=== PATIENT | female | born 1975 | race Caucasian/White ===

== ENCOUNTER 2017-11-29 11:43 | Emergency (ER) | payer MEDICARE, MEDICAID ==
[~2017-11-29] VITALS: Ht 165.1 cm; Wt 68.2 kg
[~2017-11-29 11:43] MED LIST: DEXL60CA3 PO; HYDR-3973 PO; HYDR-4003 PO; IBUP-1986 PO; LORA1TAB PO; LURA40TA3; METO-539 PO; ONDA4TAB6 PO; ONDA8TAB9 PO; OXYC-145 PO; PANT40TA4 PO; PROC-8 PO; VENL150C58 PO
[2017-11-29 11:45] VITALS: BP 155/99
== END 2017-11-29 13:51 | disposition home or self-care (01) ==
LOC: ER 11:44
DX: S63.592A Other specified sprain of left wrist, initial encounter (principal); I10 Essential (primary) hypertension; K21.9 Gastro-esophageal reflux disease without esophagitis; G89.29 Other chronic pain; Z98.890 Other specified postprocedural states; Z79.899 Other long term (current) drug therapy; X58.XXXA Exposure to other specified factors, initial encounter; Y93.89 Activity, other specified; Y92.89 Other specified places as the place of occurrence of the external cause; Y99.8 Other external cause status
CPT/HCPCS: 29125; 73110; 99284

== ENCOUNTER 2019-07-01 11:55 | Emergency (ER) | payer MEDICAID, MEDICARE ==
[~2019-07-01] VITALS: Ht 165.1 cm; Wt 78.2 kg
[2019-07-01 12:01] VITALS: BP 127/88
[2019-07-01] MEDS ORDERED: DOXY100C2 PO (13:09)
[2019-07-01] MEDS ORDERED: CHLO118L3 TOP (13:09)
== END 2019-07-01 13:30 | disposition home or self-care (01) ==
LOC: ER 11:55
DX: L03.311 Cellulitis of abdominal wall (principal); I10 Essential (primary) hypertension; K21.9 Gastro-esophageal reflux disease without esophagitis; G89.29 Other chronic pain; Z87.11 Personal history of peptic ulcer disease; Z98.890 Other specified postprocedural states; Z79.899 Other long term (current) drug therapy
CPT/HCPCS: 99283

== ENCOUNTER 2019-08-12 11:09 | Emergency (ER) | payer MEDICARE ==
[~2019-08-12] VITALS: Ht 165.1 cm; Wt 7.7 kg
[~2019-08-12 11:09] MED LIST changes: +CHLO118L3 TOP
[2019-08-12 11:26] VITALS: BP 145/88
[2019-08-12] MEDS ORDERED: ketorolac trometh. 30mg/ml inj. IM ONE (13:00)
== END 2019-08-12 13:39 | disposition home or self-care (01) ==
LOC: ER 11:10
DX: S20.212A Contusion of left front wall of thorax, initial encounter (principal); R07.81 Pleurodynia; R11.0 Nausea; I10 Essential (primary) hypertension; K21.9 Gastro-esophageal reflux disease without esophagitis; G89.29 Other chronic pain; F41.9 Anxiety disorder, unspecified; F32.9 Major depressive disorder, single episode, unspecified; F41.0 Panic disorder [episodic paroxysmal anxiety]; F17.200 Nicotine dependence, unspecified, uncomplicated; Z87.11 Personal history of peptic ulcer disease; Z79.899 Other long term (current) drug therapy; W18.39XA Other fall on same level, initial encounter; Y93.89 Activity, other specified; Y92.89 Other specified places as the place of occurrence of the external cause; Y99.8 Other external cause status
CPT/HCPCS: 71101; 96372; 99284; J1885

== ENCOUNTER 2021-01-14 15:13 | Emergency (ER) | payer MEDICARE ==
[~2021-01-14] VITALS: Ht 165.1 cm; Wt 79.5 kg
[~2021-01-14 15:13] MED LIST changes: -HYDR-4003 PO; -LURA40TA3; +LURA40TA3 PO; -PANT40TA4 PO; +PANT40TA54 PO; +[UNRECOGNIZED DRUG - CODE] PO
[2021-01-14 15:17] VITALS: BP 161/98
--- NOTE | 2021-01-14 19:56 | NUR ---
This development writer dispatched Tech to bring patient from lobby to ED/Overflow. Patient is resistant to coming back to bed, per Tech the patient wants to drink a Pepsi and smoke a cigarette first. Tech will advise ED internet manager.
[2021-01-14 20:40] LABS: BASOPHILS # (AUTO) 0.1 X10'3 (0-0.2); BASOPHILS % (AUTO) 0.9 % (0-1); EOSINOPHILS # (AUTO) 0.1 X10'3 (0-0.9); EOSINOPHILS % (AUTO) 0.9 % (0-6); HEMATOCRIT 41.5 % (35.0-45.0); HEMOGLOBIN 14.1 g/dl (12.0-16.0); LYMPHOCYTES % (AUTO) 34.4 % (21-51); MEAN CORPUSCULAR HEMOGLOBIN 29.7 PG (27.0-31.0); MEAN CORPUSCULAR VOLUME 87.2 FL (78-98); MEAN PLATELET VOLUME 9.6 FL (7.4-10.4); MONOCYTES # (AUTO) 0.6 X10'3 (0-0.9); NEUTROPHILS # (AUTO) 6.8 X10'3 (1.8-7.7); NEUTROPHILS % (AUTO) 58.8 % (42-75); PLATELET COUNT 373 X10'3 (140-440); RED BLOOD COUNT 4.76 X10'6 (4.20-5.60); RED CELL DISTRIBUTION WIDTH 13.3 % (11.5-14.5); WHITE BLOOD COUNT 11.6 X10'3 (4.5-11.0)
[2021-01-14 21:00] LABS: ALANINE AMINOTRANSFERASE 17 U/L (12-78); ALBUMIN 4.8 G/DL (3.4-5.0); ALBUMIN/GLOBULIN RATIO 1.3 (1.1-1.5); ALKALINE PHOSPHATASE 75 IU/L (46-116); ANION GAP 16 (8-16); ASPARTATE AMINO TRANSFERASE 20 U/L (10-37); BILIRUBIN,TOTAL 0.8 MG/DL (0.1-1.0); BLOOD UREA NITROGEN 28 MG/DL (7-18); CALCIUM 9.6 MG/DL (8.5-10.1); CHLORIDE 102 MMOL/L (99-107); CREATININE 1.27 MG/DL (0.40-0.90); GLUCOSE 118 MG/DL (70-104); SODIUM 141 MMOL/L (135-145); TOTAL CARBON DIOXIDE 22.7 MMOL/L (24-32); TOTAL PROTEIN 8.5 G/DL (6.4-8.2); eGFR 46 ML/MIN
[2021-01-14 21:04] LABS: POTASSIUM 2.5 MMOL/L (3.5-5.1)
--- NOTE | 2021-01-14 21:17 | NUR ---
unable to contact patient ([phone]) phone not working.
--- NOTE | 2021-01-14 22:15 | NUR ---
2nd attempt, unable to get hold of pt using phone # [phone].
[2021-01-16] MEDS ORDERED: BUPR300T86 PO (17:37)
[2021-01-16] MEDS ORDERED: BUPR1FIL20 (17:37)
[2021-01-16] MEDS ORDERED: TERB250T4 PO (17:37)
[2021-01-16] MEDS ORDERED: TRAZ-256 PO (17:37)
[2021-01-16] MEDS ORDERED: METO-395 PO (17:37)
[2021-01-16] MEDS ORDERED: SERT-434 PO (17:37)
[2021-01-25] MEDS ORDERED: HYDR50TA65 PO (14:24)
[2021-01-25] MEDS ORDERED: TRAZ-256 PO (14:24)
[2021-01-25] MEDS ORDERED: BUPR1FIL5 SL (14:24)
[2021-01-25] MEDS ORDERED: BUPR300T86 PO (14:24)
[2021-01-25] MEDS ORDERED: TERB250T4 PO (14:24)
[2021-01-25] MEDS ORDERED: NICO-668 BC (14:24)
[2021-01-25] MEDS ORDERED: SERT-434 PO (14:24)
[2021-01-25] MEDS ORDERED: CLON1TAB95 PO (14:24)
[2021-01-25] MEDS ORDERED: TRAZ-251 PO (14:24)
[2021-01-25] MEDS ORDERED: NICO-687 TD (14:24)
[2021-01-25] MEDS ORDERED: METO-395 PO (14:24)
[2021-01-25] MEDS ORDERED: ARIP2TAB20 PO (14:24)
== END 2021-01-14 20:47 | disposition left against medical advice (07) ==
LOC: ER 15:13
DX: R45.851 Suicidal ideations (principal); Z53.21 Procedure and treatment not carried out due to patient leaving prior to being seen by health care provider
CPT/HCPCS: 36415; 80053; 85025

== ENCOUNTER 2021-04-04 17:49 | Emergency (ER) | payer MEDICARE, MEDICAID ==
[~2021-04-04] VITALS: Ht 165.1 cm; Wt 68.0 kg
[~2021-04-04 17:49] MED LIST changes: +ARIP2TAB20 PO; +BUPR1FIL5 SL; +BUPR300T86 PO; -CHLO118L3 TOP; +CLON1TAB95 PO; -DEXL60CA3 PO; -HYDR-3973 PO; +HYDR50TA65 PO; -IBUP-1986 PO; -LORA1TAB PO; -LURA40TA3 PO; +METO-395 PO; +NICO-668 BC; +NICO-687 TD; -ONDA4TAB6 PO; -ONDA8TAB9 PO; -OXYC-145 PO; -PANT40TA54 PO; -PROC-8 PO; +SERT-434 PO; +TERB250T89 PO; +TRAZ-251 PO; +TRAZ-256 PO; -VENL150C58 PO; -[UNRECOGNIZED DRUG - CODE] PO
[2021-04-04 18:45] VITALS: BP 146/94
--- NOTE | 2021-04-04 23:10 | NUR ---
Pt given d/c instructions.
== END 2021-04-04 23:11 | disposition home or self-care (01) ==
LOC: ER 17:52
DX: F22 Delusional disorders (principal); I10 Essential (primary) hypertension; K21.9 Gastro-esophageal reflux disease without esophagitis; G89.29 Other chronic pain; Z87.11 Personal history of peptic ulcer disease; F15.90 Other stimulant use, unspecified, uncomplicated; Z79.899 Other long term (current) drug therapy
CPT/HCPCS: 99281

== ENCOUNTER 2021-04-05 19:08 | Emergency (ER) | payer MEDICARE, MEDICAID ==
[~2021-04-05] VITALS: Ht 165.1 cm; Wt 70.0 kg
--- NOTE | 2021-04-05 22:58 | NUR ---
PT ROOMED. ASSUMED CARE OF PT. PT HAS PUPPY IN ROOM WITH HER ON [facility]
--- NOTE | 2021-04-05 23:00 | NUR ---
Tanisha diamond in ED - 04/05/21 at 2319 by [email or web address] PT ROOMED IN BED 2. ASSUMED CARE OF PT. DR KRUSE HAS ALREADY EVALUATED PT.
[2021-04-05 23:22] LABS: BASOPHILS % (AUTO) 0.6 % (0-1); EOSINOPHILS % (AUTO) 0.9 % (0-6); HEMOGLOBIN 12.2 g/dl (12.0-16.0); LYMPHOCYTES # (AUTO) 1.9 X10'3 (1.1-4.8); LYMPHOCYTES % (AUTO) 35.4 % (21-51); MEAN CORPUSCULAR HEMOGLOBIN 29.4 PG (27.0-31.0); MEAN CORPUSCULAR HGB CONC 34.9 g/dL (33.0-36.5); MEAN CORPUSCULAR VOLUME 84.4 FL (78-98); MEAN PLATELET VOLUME 8.6 FL (7.4-10.4); MONOCYTES # (AUTO) 0.2 X10'3 (0-0.9); MONOCYTES % (AUTO) 4.4 % (2-12); NEUTROPHILS # (AUTO) 3.1 X10'3 (1.8-7.7); NEUTROPHILS % (AUTO) 58.7 % (42-75); PLATELET COUNT 227 X10'3 (140-440); RED BLOOD COUNT 4.14 X10'6 (4.20-5.60); RED CELL DISTRIBUTION WIDTH 13.3 % (11.5-14.5); WHITE BLOOD COUNT 5.3 X10'3 (4.5-11.0)
--- NOTE | 2021-04-05 23:28 | NUR ---
Tanisha diamond in ED - 04/06/21 at 0229 by [email or web address] RT AT BEDSIDE
[2021-04-05 23:39] LABS: ALANINE AMINOTRANSFERASE 25 U/L (12-78); ALBUMIN 3.9 G/DL (3.4-5.0); ALBUMIN/GLOBULIN RATIO 1.3 (1.1-1.5); ALKALINE PHOSPHATASE 45 IU/L (46-116); ANION GAP 11 (8-16); ASPARTATE AMINO TRANSFERASE 17 U/L (10-37); BILIRUBIN,DIRECT 0.1 MG/DL (0-0.3); BILIRUBIN,TOTAL 0.4 MG/DL (0.1-1.0); BLOOD UREA NITROGEN 13 MG/DL (7-18); BUN/CREATININE RATIO 14.8 (6.6-38.0); CALCIUM 9.1 MG/DL (8.5-10.1); CHLORIDE 101 MMOL/L (99-107); CREATININE 0.88 MG/DL (0.40-0.90); GLUCOSE 118 MG/DL (70-104); LIPASE 64 U/L (73-393); SODIUM 139 MMOL/L (135-145); TOTAL CARBON DIOXIDE 26.7 MMOL/L (24-32); TOTAL PROTEIN 6.9 G/DL (6.4-8.2); eGFR 69 ML/MIN
[2021-04-05 23:42] LABS: POTASSIUM 2.5 MMOL/L (3.5-5.1)
[2021-04-05] MEDS ORDERED: potassium Cl 20 mEq SR tablet PO STA (23:42)
[2021-04-05] MEDS ORDERED: potassium Cl 20 mEq/100mL bag IV ONE (23:45)
--- NOTE | 2021-04-06 02:29 | NUR ---
PT ROSITA. STATES POTASSIUM RUNNING AT 5 Mq/HR WITH NORMAL SALINE IS BURNING. REQUESTS TO HAVE IT REMOVED
[2021-04-06] MEDS ORDERED: POTA10CA44 PO (03:34)
[2021-04-06 04:34] VITALS: BP 155/79
== END 2021-04-06 04:35 | disposition home or self-care (01) ==
LOC: ER 19:09
DX: E87.6 Hypokalemia (principal); R07.89 Other chest pain; M79.602 Pain in left arm; R20.0 Anesthesia of skin; R10.84 Generalized abdominal pain; I10 Essential (primary) hypertension; K21.9 Gastro-esophageal reflux disease without esophagitis; G89.29 Other chronic pain; F41.9 Anxiety disorder, unspecified; F32.9 Major depressive disorder, single episode, unspecified; F15.90 Other stimulant use, unspecified, uncomplicated; Z87.11 Personal history of peptic ulcer disease; Z98.890 Other specified postprocedural states; Z79.899 Other long term (current) drug therapy
CPT/HCPCS: 36415; 71045; 80048; 80076; 83690; 84484; 85025; 96365; 96366; 99285; J3480

== ENCOUNTER 2021-06-12 18:26 | Emergency (ER) | payer MEDICARE, MEDICAID ==
[~2021-06-12] VITALS: Ht 165.1 cm; Wt 72.7 kg
[2021-06-12 19:04] VITALS: BP 164/108
== END 2021-06-12 19:20 | disposition left against medical advice (07) ==
LOC: ER 18:27
DX: R21 Rash and other nonspecific skin eruption (principal); Z53.21 Procedure and treatment not carried out due to patient leaving prior to being seen by health care provider

== ENCOUNTER 2021-06-15 17:44 | Emergency (ER) | payer MEDICARE, MEDICAID ==
[~2021-06-15] VITALS: Ht 165.1 cm; Wt 75.0 kg
[2021-06-15 17:54] VITALS: BP 150/112
--- NOTE | 2021-06-15 19:04 | NUR ---
Tanisha diamond in [facility] - 06/15/21 at 1905 by [email or web address] spoke to pharmacy. they are preparing sabra jackson.
== END 2021-06-15 19:13 | disposition home or self-care (01) ==
LOC: ER 17:45
DX: U07.1 COVID-19 (principal); J06.9 Acute upper respiratory infection, unspecified; J02.9 Acute pharyngitis, unspecified; R10.84 Generalized abdominal pain; R07.89 Other chest pain; R51.9 Headache, unspecified; R11.0 Nausea; I10 Essential (primary) hypertension; K21.9 Gastro-esophageal reflux disease without esophagitis; G89.29 Other chronic pain; F41.9 Anxiety disorder, unspecified; F32.A Depression, unspecified; F15.90 Other stimulant use, unspecified, uncomplicated; Z87.11 Personal history of peptic ulcer disease; Z98.890 Other specified postprocedural states; Z79.899 Other long term (current) drug therapy
CPT/HCPCS: 87635; 99283; C9803

== ENCOUNTER 2021-06-18 10:49 | Emergency (ER) | payer MEDICARE, MEDICAID ==
[~2021-06-18] VITALS: Ht 165.1 cm; Wt 72.7 kg
[2021-06-18 10:59] VITALS: BP 169/105
[2021-06-18] MEDS ORDERED: GABA-530 PO (12:33)
[2021-06-18] MEDS ORDERED: OLAN5TAB5 PO (12:33)
[2021-06-18] MEDS ORDERED: gabapentin 300mg capsule PO ONE (13:26)
[2021-06-18] MEDS ORDERED: LORazepam 1 MG tablet PO ONE ×2 (13:40→13:50)
--- NOTE | 2021-06-18 13:40 | NUR ---
PT COMPLAINS OF BILAT ARM NUMBNESS AND CHEST PAIN. HELENE RAMIRES NOTIFIED. HELENE PLACED ORDER FOR ATIVAN. PT WALKED OUT PRIOR TO DC INSTRUCTIONS AND MEDICATION.
== END 2021-06-18 14:19 | disposition home or self-care (01) ==
LOC: ER 10:50
DX: Z13.89 Encounter for screening for other disorder (principal); F29 Unspecified psychosis not due to a substance or known physiological condition; I10 Essential (primary) hypertension; K21.9 Gastro-esophageal reflux disease without esophagitis; G89.29 Other chronic pain; F41.9 Anxiety disorder, unspecified; F32.A Depression, unspecified; F15.90 Other stimulant use, unspecified, uncomplicated; Z87.11 Personal history of peptic ulcer disease; Z98.890 Other specified postprocedural states; Z79.899 Other long term (current) drug therapy
CPT/HCPCS: 99283

== ENCOUNTER 2021-06-21 19:21 | Emergency (ER) | payer MEDICARE, MEDICAID ==
[~2021-06-21] VITALS: Ht 165.1 cm; Wt 69.5 kg
[~2021-06-21 19:21] MED LIST changes: +GABA-530 PO; +OLAN5TAB5 PO
[2021-06-21 19:38] VITALS: BP 190/107
[2021-06-21] MEDS ORDERED: ondansetron/PF 4mg/2ml inj IV ONE (19:45)
[2021-06-21] MEDS ORDERED: normal saline 1000ML IV soln IVB ONE (19:45)
[2021-06-21 19:59] LABS: BASOPHILS # (AUTO) 0.1 X10'3 (0-0.2); BASOPHILS % (AUTO) 1.3 % (0-1); EOSINOPHILS % (AUTO) 0.5 % (0-6); HEMATOCRIT 39.3 % (35.0-45.0); HEMOGLOBIN 13.3 g/dl (12.0-16.0); LYMPHOCYTES % (AUTO) 28.2 % (21-51); MEAN CORPUSCULAR HEMOGLOBIN 27.8 PG (27.0-31.0); MEAN CORPUSCULAR HGB CONC 33.7 g/dL (33.0-36.5); MEAN CORPUSCULAR VOLUME 82.3 FL (78-98); MEAN PLATELET VOLUME 8.4 FL (7.4-10.4); MONOCYTES # (AUTO) 0.2 X10'3 (0-0.9); MONOCYTES % (AUTO) 3.6 % (2-12); NEUTROPHILS # (AUTO) 4.6 X10'3 (1.8-7.7); NEUTROPHILS % (AUTO) 66.4 % (42-75); PLATELET COUNT 421 X10'3 (140-440); RED BLOOD COUNT 4.77 X10'6 (4.20-5.60); RED CELL DISTRIBUTION WIDTH 13.2 % (11.5-14.5); WHITE BLOOD COUNT 6.9 X10'3 (4.5-11.0)
--- NOTE | 2021-06-21 20:00 | NUR ---
PATIENT IS COVID POSITIVE FROM A RECENT VISIT. PATIENT MOVED TO [facility]. PATIENT WAS UNAWARE OF COVID 19 DX.
[2021-06-21 20:23] LABS: ALANINE AMINOTRANSFERASE 17 U/L (12-78); ALBUMIN 4.2 G/DL (3.4-5.0); ALBUMIN/GLOBULIN RATIO 1.4 (1.1-1.5); ALKALINE PHOSPHATASE 50 IU/L (46-116); ANION GAP 14 (8-16); ASPARTATE AMINO TRANSFERASE 17 U/L (10-37); BILIRUBIN,TOTAL 0.5 MG/DL (0.1-1.0); BLOOD UREA NITROGEN 18 MG/DL (7-18); BUN/CREATININE RATIO 21.2 (6.6-38.0); CALCIUM 9.9 MG/DL (8.5-10.1); CHLORIDE 100 MMOL/L (99-107); CREATININE 0.85 MG/DL (0.40-0.90); GLUCOSE 130 MG/DL (70-104); SODIUM 142 MMOL/L (135-145); TOTAL CARBON DIOXIDE 27.8 MMOL/L (24-32); TOTAL PROTEIN 7.3 G/DL (6.4-8.2); eGFR 72 ML/MIN
[2021-06-21] MEDS ORDERED: ONDA4TAB12 PO (20:32)
[2021-06-21 20:52] LABS: POTASSIUM 2.8 MMOL/L (3.5-5.1)
[2021-06-21] MEDS ORDERED: potassium Cl 20 mEq SR tablet PO STA (20:53)
[2021-06-21] MEDS ORDERED: potassium Cl 10 mEq/100mL bag IV ONE (20:55)
== END 2021-06-21 22:34 | disposition home or self-care (01) ==
LOC: ER 19:21
DX: U07.1 COVID-19 (principal); E86.0 Dehydration; R11.2 Nausea with vomiting, unspecified; E87.6 Hypokalemia; R19.7 Diarrhea, unspecified; F41.9 Anxiety disorder, unspecified; I10 Essential (primary) hypertension; K21.9 Gastro-esophageal reflux disease without esophagitis; G89.29 Other chronic pain; F32.A Depression, unspecified; F17.200 Nicotine dependence, unspecified, uncomplicated; F15.90 Other stimulant use, unspecified, uncomplicated; Z87.11 Personal history of peptic ulcer disease; Z98.890 Other specified postprocedural states; Z79.899 Other long term (current) drug therapy
CPT/HCPCS: 36415; 80053; 85025; 93005; 96361; 96365; 96375; 99284; J2405; J3480; J7030

== ENCOUNTER 2021-07-06 20:50 | Emergency (ER) | payer MEDICARE, MEDICAID ==
[~2021-07-06] VITALS: Ht 152.4 cm; Wt 77.2 kg
[~2021-07-06 20:50] MED LIST changes: +ONDA4TAB12 PO
--- NOTE | 2021-07-06 21:22 | NUR ---
chart writer laura with triage note , patient states that she has thin she was exposed to scabies and lice , she wants to be treated and or cleared so she can take it back to the rehab center
[2021-07-06] MEDS ORDERED: CefTRIAXone 1000mg IM Kit (w/lidocaine diluent) IM SCH (22:20)
[2021-07-06] MEDS ORDERED: azithromycin 250mg tablet PO ONE (22:20)
[2021-07-06 22:44] VITALS: BP 130/82
== END 2021-07-06 22:46 | disposition home or self-care (01) ==
LOC: ER 20:51
DX: Z20.2 Contact with and (suspected) exposure to infections with a predominantly sexual mode of transmission (principal); B86 Scabies; I10 Essential (primary) hypertension; K21.9 Gastro-esophageal reflux disease without esophagitis; G89.29 Other chronic pain; F41.9 Anxiety disorder, unspecified; F32.A Depression, unspecified; F15.90 Other stimulant use, unspecified, uncomplicated; Z70.1 Counseling related to patient's sexual behavior and orientation; Z87.11 Personal history of peptic ulcer disease; Z98.890 Other specified postprocedural states; Z79.899 Other long term (current) drug therapy
CPT/HCPCS: 96372; 99284; J0696

== ENCOUNTER 2021-12-07 18:35 | Emergency (ER) | payer MEDICARE, MEDICAID ==
[~2021-12-07] VITALS: Ht 165.1 cm; Wt 77.0 kg
[~2021-12-07 18:35] MED LIST changes: -OLAN5TAB5 PO
[2021-12-07 18:40] VITALS: BP 134/80
[2021-12-07 19:09] LABS: BASOPHILS % (AUTO) 0.5 % (0-1); EOSINOPHILS # (AUTO) 0.2 X10'3 (0-0.9); EOSINOPHILS % (AUTO) 3.8 % (0-6); HEMATOCRIT 29.6 % (35.0-45.0); HEMOGLOBIN 10.1 g/dl (12.0-16.0); LYMPHOCYTES # (AUTO) 1.7 X10'3 (1.1-4.8); LYMPHOCYTES % (AUTO) 33.7 % (21-51); MEAN CORPUSCULAR HEMOGLOBIN 29.2 PG (27.0-31.0); MEAN PLATELET VOLUME 9.2 FL (7.4-10.4); MONOCYTES # (AUTO) 0.2 X10'3 (0-0.9); MONOCYTES % (AUTO) 3.9 % (2-12); NEUTROPHILS # (AUTO) 2.9 X10'3 (1.8-7.7); NEUTROPHILS % (AUTO) 58.1 % (42-75); PLATELET COUNT 190 X10'3 (140-440); RED BLOOD COUNT 3.44 X10'6 (4.20-5.60)
[2021-12-07 19:23] LABS: ALANINE AMINOTRANSFERASE 26 U/L (12-78); ALBUMIN 3.5 G/DL (3.4-5.0); ALBUMIN/GLOBULIN RATIO 1.2 (1.1-1.5); ALKALINE PHOSPHATASE 36 IU/L (46-116); ANION GAP 11 (8-16); ASPARTATE AMINO TRANSFERASE 17 U/L (10-37); BILIRUBIN,TOTAL 0.2 MG/DL (0.1-1.0); BLOOD UREA NITROGEN 15 MG/DL (7-18); BUN/CREATININE RATIO 15.5 (6.6-38.0); CALCIUM 9.2 MG/DL (8.5-10.1); CHLORIDE 103 MMOL/L (99-107); CREATININE 0.97 MG/DL (0.40-0.90); GLUCOSE 90 MG/DL (70-104); LIPASE 67 U/L (73-393); SODIUM 141 MMOL/L (135-145); TOTAL CARBON DIOXIDE 27.2 MMOL/L (24-32); TOTAL PROTEIN 6.4 G/DL (6.4-8.2); eGFR 62 ML/MIN
[2021-12-07 19:33] LABS: URINE HCG NEGATIVE (NEG)
[2021-12-07 19:34] LABS: CLARITY,URINE CLEAR (Clear); COLOR,URINE YELLOW (Yellow); GLUCOSE, URINE NEGATIVE (Neg); KETONES,URINE NEGATIVE (Neg); LEUKOCYTE ESTERASE ,URINE NEGATIVE (Neg); NITRITES, URINE NEGATIVE (Neg); OCCULT BLOOD,URINE SMALL (Neg); PH,URINE 5.5 (4.8-8.0); PROTEIN,URINE NEGATIVE (Neg); UROBILINOGEN,URINE 0.2 E.U/dL (0.2-1.0)
[2021-12-07 19:35] LABS: UA COLLECTION TYPE CLN CATCH MIDSTREAM
[2021-12-07 19:38] LABS: POTASSIUM 2.7 MMOL/L (3.5-5.1)
[2021-12-07 19:43] LABS: RBC,URINE 0-2 /HPF (0-2); WBC,URINE NONE SEEN /HPF (0-4)
[2021-12-07 19:44] LABS: BACTERIA,URINE FEW /HPF (Neg); SQUAMOUS EPITHELIAL CELL,UR NONE SEEN /LPF (FEW)
--- NOTE | 2021-12-07 22:59 | NUR ---
PT HAS LEFT THE ER. BAT LATHE OPERATOR TRIED TO CONTACT PT REGARDING HER LOW POTASSIUM LEVEL, TO ASK HER TO RETURN FOR TREATMENT, PHONE NUMBER LISTED ON CHART IS A NON-WORKING NUMBER, UNABLE TO LEAVE A MESSAGE
== END 2021-12-07 21:54 | disposition left against medical advice (07) ==
LOC: ER 18:35
DX: R51.9 Headache, unspecified (principal); R11.10 Vomiting, unspecified; Z53.21 Procedure and treatment not carried out due to patient leaving prior to being seen by health care provider
CPT/HCPCS: 36415; 80053; 81001; 81025; 83690; 85025

== ENCOUNTER 2021-12-24 11:06 | Emergency (ER) | payer MEDICARE, MEDICAID ==
[~2021-12-24] VITALS: Ht 162.6 cm; Wt 77.0 kg
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
--- NOTE | 2021-12-24 12:02 | NUR ---
called [facility], they said to call back Sunday at 0900 to set up appt for evaluation, pt is aware
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
[2021-12-24] MEDS ORDERED: buprenorphine/naloxone 8MG-2MG SUBlingual film SL ONE (14:15)
[2021-12-24] MEDS ORDERED: hydrOXYzine 25 MG tablet PO ONE (14:15)
[2021-12-24 15:16] VITALS: BP 147/94
[2021-12-25] MEDS ORDERED: SERT25TA PO (13:37)
[2021-12-25] MEDS ORDERED: HYDR-3686 PO (13:37)
[2021-12-25] MEDS ORDERED: LURA20TA PO (13:37)
[2021-12-25] MEDS ORDERED: BUPR-94 PO (13:37)
[2021-12-25] MEDS ORDERED: BUPR1TAB44 SL (13:37)
== END 2021-12-24 15:27 | disposition home or self-care (01) ==
LOC: ER 11:07
DX: F11.21 Opioid dependence, in remission (principal); Z20.822 Contact with and (suspected) exposure to COVID-19; R11.0 Nausea; R53.83 Other fatigue; R09.89 Other specified symptoms and signs involving the circulatory and respiratory systems; I10 Essential (primary) hypertension; K21.9 Gastro-esophageal reflux disease without esophagitis; G89.29 Other chronic pain; F41.9 Anxiety disorder, unspecified; F32.A Depression, unspecified; F17.200 Nicotine dependence, unspecified, uncomplicated; F15.90 Other stimulant use, unspecified, uncomplicated; Z87.11 Personal history of peptic ulcer disease; Z76.0 Encounter for issue of repeat prescription; Z98.890 Other specified postprocedural states; Z79.899 Other long term (current) drug therapy
CPT/HCPCS: 71045; 87635; 99284; C9803; Q0177

== ENCOUNTER 2021-12-25 12:24 | Emergency (ER) | payer MEDICARE, MEDICAID ==
[~2021-12-25] VITALS: Ht 165.1 cm; Wt 77.3 kg
[2021-12-25 12:30] VITALS: BP 158/101
[2021-12-25] MEDS ORDERED: HYDR-3686 PO (13:37)
[2021-12-25] MEDS ORDERED: LURA20TA PO (13:37)
[2021-12-25] MEDS ORDERED: BUPR1TAB44 SL (13:37)
[2021-12-25] MEDS ORDERED: SERT25TA PO (13:37)
[2021-12-25] MEDS ORDERED: BUPR-94 PO (13:37)
[2021-12-25] MEDS ORDERED: buprenorphine/naloxone 8MG-2MG SUBlingual film SL SCH (13:40)
[2021-12-25] MEDS ORDERED: hydrOXYzine 25 MG tablet PO ONE (14:05)
== END 2021-12-25 14:12 | disposition home or self-care (01) ==
LOC: ER 12:24
DX: F41.9 Anxiety disorder, unspecified (principal); F41.0 Panic disorder [episodic paroxysmal anxiety]; R51.9 Headache, unspecified; I10 Essential (primary) hypertension; K21.9 Gastro-esophageal reflux disease without esophagitis; F15.20 Other stimulant dependence, uncomplicated
CPT/HCPCS: 99283; Q0177

== ENCOUNTER 2021-12-26 12:17 | Emergency (ER) | payer MEDICARE, MEDICAID ==
[~2021-12-26] VITALS: Ht 165.1 cm; Wt 69.0 kg
[~2021-12-26 12:17] MED LIST changes: +BUPR-94 PO; +BUPR1TAB44 SL; +HYDR-3686 PO; +LURA20TA PO; +SERT25TA PO
[2021-12-26 12:51] VITALS: BP 154/103
== END 2021-12-26 14:21 | disposition left against medical advice (07) ==
LOC: ER 12:18
DX: F41.9 Anxiety disorder, unspecified (principal); Z53.21 Procedure and treatment not carried out due to patient leaving prior to being seen by health care provider

== ENCOUNTER 2022-01-07 19:05 | Emergency (ER) | payer MEDICARE, MEDICAID ==
[~2022-01-07] VITALS: Ht 165.1 cm; Wt 68.7 kg
[~2022-01-07 19:05] MED LIST changes: -HYDR-3686 PO
[2022-01-07 19:19] VITALS: BP 134/92
[2022-01-07] MEDS ORDERED: CLON1TAB95 PO (19:40)
[2022-01-07] MEDS ORDERED: LORazepam 1 MG tablet PO ONE (19:40)
[2022-01-07] MEDS ORDERED: buprenorphine/naloxone 8MG-2MG SUBlingual film SL ONE (20:00)
== END 2022-01-07 20:15 | disposition home or self-care (01) ==
LOC: ER 19:06
DX: F41.9 Anxiety disorder, unspecified (principal); R51.9 Headache, unspecified; I10 Essential (primary) hypertension; K21.9 Gastro-esophageal reflux disease without esophagitis; G89.29 Other chronic pain; F32.A Depression, unspecified; F15.90 Other stimulant use, unspecified, uncomplicated; F11.90 Opioid use, unspecified, uncomplicated; Z76.0 Encounter for issue of repeat prescription; Z87.11 Personal history of peptic ulcer disease; Z98.890 Other specified postprocedural states; Z59.00 Homelessness unspecified; Z79.899 Other long term (current) drug therapy
CPT/HCPCS: 99283

== ENCOUNTER 2022-01-14 15:14 | Emergency (ER) | payer MEDICARE, MEDICAID | END 2022-01-14 16:14 | disposition left against medical advice (07) | LOC: ER 15:15 | DX: Z76.0 Encounter for issue of repeat prescription (principal); Z53.21 Procedure and treatment not carried out due to patient leaving prior to being seen by health care provider ==

== ENCOUNTER 2022-02-20 04:49 | Emergency (ER) | payer MEDICARE, MEDICAID ==
[~2022-02-20] VITALS: Ht 165.1 cm; Wt 66.0 kg
[2022-02-20 05:10] VITALS: BP 129/83
== END 2022-02-20 09:59 | disposition left against medical advice (07) ==
LOC: ER 04:50
DX: F11.10 Opioid abuse, uncomplicated (principal); Z53.21 Procedure and treatment not carried out due to patient leaving prior to being seen by health care provider

== ENCOUNTER 2022-04-10 13:43 | Emergency (ER) | payer MEDICARE, MEDICAID | END 2022-04-10 17:50 | disposition left against medical advice (07) | LOC: ER 13:43 | DX: Z00.8 Encounter for other general examination (principal); Z53.21 Procedure and treatment not carried out due to patient leaving prior to being seen by health care provider ==

== ENCOUNTER 2022-04-10 17:21 | Emergency (ER) | payer MEDICARE, MEDICAID ==
[~2022-04-10] VITALS: Ht 165.1 cm; Wt 63.6 kg
[2022-04-11 03:45] LABS: CLARITY,URINE SLIGHTLY CLOUDY (Clear); COLOR,URINE YELLOW (Yellow); GLUCOSE, URINE NEGATIVE (Neg); KETONES,URINE NEGATIVE (Neg); LEUKOCYTE ESTERASE ,URINE NEGATIVE (Neg); NITRITES, URINE NEGATIVE (Neg); OCCULT BLOOD,URINE SMALL (Neg); PROTEIN,URINE NEGATIVE (Neg); URINE HCG NEGATIVE (NEG); UROBILINOGEN,URINE 0.2 E.U/dL (0.2-1.0)
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
[2022-04-11 03:48] LABS: UA COLLECTION TYPE NON-SPECIFIED
[2022-04-11 03:50] LABS: BASOPHILS % (AUTO) 0.5 % (0-1); EOSINOPHILS # (AUTO) 0.2 X10'3 (0-0.9); EOSINOPHILS % (AUTO) 1.9 % (0-6); HEMATOCRIT 39.6 % (35.0-45.0); HEMOGLOBIN 13.3 g/dl (12.0-16.0); LYMPHOCYTES # (AUTO) 3.9 X10'3 (1.1-4.8); LYMPHOCYTES % (AUTO) 43.2 % (21-51); MEAN CORPUSCULAR HEMOGLOBIN 28.2 PG (27.0-31.0); MEAN CORPUSCULAR HGB CONC 33.5 g/dL (33.0-36.5); MEAN CORPUSCULAR VOLUME 84.1 FL (78-98); MONOCYTES # (AUTO) 0.4 X10'3 (0-0.9); MONOCYTES % (AUTO) 4.3 % (2-12); NEUTROPHILS # (AUTO) 4.5 X10'3 (1.8-7.7); NEUTROPHILS % (AUTO) 50.1 % (42-75); PLATELET COUNT 289 X10'3 (140-440); RED BLOOD COUNT 4.71 X10'6 (4.20-5.60); RED CELL DISTRIBUTION WIDTH 14.3 % (11.5-14.5); WHITE BLOOD COUNT 9.1 X10'3 (4.5-11.0)
[2022-04-11 03:55] LABS: BACTERIA,URINE 2+ /HPF (Neg); MUCUS STRANDS FEW /LPF (Neg); SQUAMOUS EPITHELIAL CELL,UR MODERATE /LPF (FEW); TRANSITIONAL EPI CELLS,URINE FEW /HPF
[2022-04-11 04:04] LABS: URINE AMPHETAMINE SCREEN POSITIVE (Neg); URINE BARBITUATE SCREEN NEGATIVE (Neg); URINE BENZODIAZEPINES SCREEN POSITIVE (Neg); URINE CANNABINOID SCREEN NEGATIVE (Neg); URINE COCAINE SCREEN NEGATIVE (Neg); URINE METHADONE SCREEN NEGATIVE (Neg); URINE OPIATE SCREEN NEGATIVE (Neg); URINE PHENCYCLIDINE SCREEN NEGATIVE (Neg)
[2022-04-11 04:07] LABS: ALANINE AMINOTRANSFERASE 12 U/L (12-78); ALBUMIN 4.4 G/DL (3.4-5.0); ALBUMIN/GLOBULIN RATIO 1.2 (1.1-1.5); ALKALINE PHOSPHATASE 53 IU/L (46-116); ANION GAP 9 (8-16); ASPARTATE AMINO TRANSFERASE 21 U/L (10-37); BILIRUBIN,TOTAL 0.4 MG/DL (0.1-1.0); BLOOD UREA NITROGEN 13 MG/DL (7-18); BUN/CREATININE RATIO 15.1 (6.6-38.0); CALCIUM 9.8 MG/DL (8.5-10.1); CHLORIDE 102 MMOL/L (99-107); CREATININE 0.86 MG/DL (0.40-0.90); ETHANOL < 0.010 GM/DL (0.0-0.010); GLUCOSE 110 MG/DL (70-104); SODIUM 139 MMOL/L (135-145); TOTAL CARBON DIOXIDE 28.4 MMOL/L (24-32); eGFR 71 ML/MIN
[2022-04-11 04:11] LABS: POTASSIUM 2.7 MMOL/L (3.5-5.1)
[2022-04-11] MEDS ORDERED: potassium Cl 20 mEq SR tablet PO ONE (04:20)
[2022-04-11] MEDS ORDERED: ondansetron 4mg rapidly disintigrating tab PO ONE (04:20)
[2022-04-11 10:53] VITALS: BP 112/74
== END 2022-04-11 12:17 | disposition home or self-care (01) ==
LOC: ER 17:22
DX: F39 Unspecified mood [affective] disorder (principal); Z20.822 Contact with and (suspected) exposure to COVID-19; F15.90 Other stimulant use, unspecified, uncomplicated
CPT/HCPCS: 36415; 80053; 80305; 80320; 81001; 81025; 84443; 85025; 87635; 99283; C9803

== ENCOUNTER 2022-04-19 16:16 | Emergency (ER) | payer MEDICARE, MEDICAID ==
[~2022-04-19] VITALS: Ht 165.1 cm; Wt 67.3 kg
[2022-04-19 17:32] VITALS: BP 176/88
--- NOTE | 2022-04-20 02:28 | NUR ---
PER DR. LOMBARDO PATIENT WILL BE DISCHARGED TO [facility] AND RETURN FOR MEDICAL SECRETARY IN AM
== END 2022-04-20 02:32 | disposition home or self-care (01) ==
LOC: ER 16:17
DX: Z60.9 Problem related to social environment, unspecified (principal); I10 Essential (primary) hypertension; K21.9 Gastro-esophageal reflux disease without esophagitis; G89.29 Other chronic pain; F31.9 Bipolar disorder, unspecified; F15.10 Other stimulant abuse, uncomplicated; Z79.899 Other long term (current) drug therapy; Z79.1 Long term (current) use of non-steroidal anti-inflammatories (NSAID); Z79.2 Long term (current) use of antibiotics
CPT/HCPCS: 99281; 99283

== ENCOUNTER 2022-04-21 04:50 | Emergency (ER) | payer MEDICARE, MEDICAID ==
[~2022-04-21] VITALS: Ht 165.1 cm; Wt 65.9 kg
[2022-04-21 05:46] VITALS: BP 148/80
[2022-04-21 10:23] LABS: ALBUMIN 3.7 G/DL (3.4-5.0); ANION GAP 7 (8-16); BLOOD UREA NITROGEN 17 MG/DL (7-18); BUN/CREATININE RATIO 23.3 (6.6-38.0); CALCIUM 8.9 MG/DL (8.5-10.1); CHLORIDE 104 MMOL/L (99-107); CREATININE 0.73 MG/DL (0.40-0.90); GLUCOSE 96 MG/DL (70-104); POTASSIUM 3.7 MMOL/L (3.5-5.1); SODIUM 140 MMOL/L (135-145); TOTAL CARBON DIOXIDE 29.2 MMOL/L (24-32); eGFR 85 ML/MIN
== END 2022-04-21 13:19 | disposition home or self-care (01) ==
LOC: ER 04:50
DX: E87.6 Hypokalemia (principal); F17.200 Nicotine dependence, unspecified, uncomplicated; I10 Essential (primary) hypertension; K21.9 Gastro-esophageal reflux disease without esophagitis; G89.29 Other chronic pain; F31.9 Bipolar disorder, unspecified; Z59.00 Homelessness unspecified; Z79.899 Other long term (current) drug therapy; Z79.1 Long term (current) use of non-steroidal anti-inflammatories (NSAID); Z79.2 Long term (current) use of antibiotics
CPT/HCPCS: 36415; 80048; 99283

== ENCOUNTER 2022-07-23 17:48 | Emergency (ER) | payer MEDICARE, MEDICAID ==
[~2022-07-23] VITALS: Ht 165.1 cm; Wt 72.7 kg
[~2022-07-23 17:48] MED LIST changes: -LURA20TA PO; +LURA20TA8 PO
[2022-07-23 18:07] VITALS: BP 127/78
== END 2022-07-23 20:47 | disposition left against medical advice (07) ==
LOC: ER 20:46
DX: F29 Unspecified psychosis not due to a substance or known physiological condition (principal); Z53.21 Procedure and treatment not carried out due to patient leaving prior to being seen by health care provider
CPT/HCPCS: 99281

== ENCOUNTER 2022-07-24 16:30 | Emergency (ER) | payer MEDICARE, MEDICAID ==
[~2022-07-24] VITALS: Ht 165.1 cm; Wt 7.3 kg
[2022-07-24 16:46] VITALS: BP 142/103
== END 2022-07-24 23:30 | disposition left against medical advice (07) ==
LOC: ER 16:31 → EEVIPCON 16:31 → ER 23:30
DX: R51.9 Headache, unspecified (principal); Z53.21 Procedure and treatment not carried out due to patient leaving prior to being seen by health care provider
CPT/HCPCS: 99281

== ENCOUNTER 2022-07-26 07:31 | Emergency (ER) | payer MEDICARE, MEDICAID ==
[~2022-07-26] VITALS: Ht 165.1 cm; Wt 75.2 kg
[2022-07-26 08:18] VITALS: BP 123/76
[2022-07-26] MEDS ORDERED: diazepam 5mg tablet PO ONE (08:30)
[2022-07-26] MEDS ORDERED: DIAZ2TAB3 PO (08:32)
--- NOTE | 2022-07-26 09:01 | NUR ---
Pt states she wishes to have her valium on d/c instead of at this time.
== END 2022-07-26 10:31 | disposition home or self-care (01) ==
LOC: ER 07:32
DX: M79.10 Myalgia, unspecified site (principal); M54.59 Other low back pain; Y04.8XXA Assault by other bodily force, initial encounter; S09.90XA Unspecified injury of head, initial encounter; S16.1XXA Strain of muscle, fascia and tendon at neck level, initial encounter; Y93.89 Activity, other specified; Y92.89 Other specified places as the place of occurrence of the external cause; Y99.8 Other external cause status; K21.9 Gastro-esophageal reflux disease without esophagitis; G89.29 Other chronic pain; F31.9 Bipolar disorder, unspecified; F15.10 Other stimulant abuse, uncomplicated; Z79.899 Other long term (current) drug therapy; Z79.1 Long term (current) use of non-steroidal anti-inflammatories (NSAID); Z79.2 Long term (current) use of antibiotics
CPT/HCPCS: 70450; 72125; 99284

== ENCOUNTER 2022-08-04 10:11 | Emergency (ER) | payer MEDICARE, MEDICAID ==
[~2022-08-04] VITALS: Ht 165.1 cm; Wt 72.0 kg
[~2022-08-04 10:11] MED LIST changes: +DIAZ2TAB3 PO
[2022-08-04 10:19] VITALS: BP 150/95
--- NOTE | 2022-08-04 10:30 | NUR ---
Pt in FTB. Pt needs her prescription for medication. C/o anxiety, and panic attacks. Pt educated to POC. Pt in agreement. Pending providers eval and treatment.
--- NOTE | 2022-08-04 10:41 | NUR ---
Provider at bedside
[2022-08-04] MEDS ORDERED: diazepam 5mg tablet PO ONE (11:40)
== END 2022-08-04 12:05 | disposition home or self-care (01) ==
LOC: ER 10:12
DX: F41.9 Anxiety disorder, unspecified (principal); Z76.0 Encounter for issue of repeat prescription; I10 Essential (primary) hypertension; K21.9 Gastro-esophageal reflux disease without esophagitis; G89.29 Other chronic pain; F32.A Depression, unspecified; F15.10 Other stimulant abuse, uncomplicated; Z79.899 Other long term (current) drug therapy; Z79.1 Long term (current) use of non-steroidal anti-inflammatories (NSAID); Z79.2 Long term (current) use of antibiotics
CPT/HCPCS: 99283

== ENCOUNTER 2022-12-30 22:13 | Emergency (ER) | payer MEDICARE, MEDICAID | END 2022-12-30 22:44 | disposition left against medical advice (07) | LOC: ER 22:14 | DX: Z00.8 Encounter for other general examination (principal); Z53.21 Procedure and treatment not carried out due to patient leaving prior to being seen by health care provider ==

== ENCOUNTER 2023-07-14 15:30 | Emergency (ER) | payer MEDICARE, MEDICAID ==
[~2023-07-14] VITALS: Ht 165.1 cm; Wt 86.7 kg
[~2023-07-14 15:30] MED LIST changes: +BUPR-564 PO; -BUPR300T86 PO
[2023-07-14 16:07] LABS: BASOPHILS % (AUTO) 0.3 % (0-1); EOSINOPHILS # (AUTO) 0.1 X10'3 (0-0.9); EOSINOPHILS % (AUTO) 1.2 % (0-6); HEMATOCRIT 40.3 % (35.0-45.0); HEMOGLOBIN 13.7 g/dl (12.0-16.0); LYMPHOCYTES # (AUTO) 1.6 X10'3 (1.1-4.8); LYMPHOCYTES % (AUTO) 23.4 % (21-51); MEAN CORPUSCULAR HEMOGLOBIN 28.1 PG (27.0-31.0); MEAN CORPUSCULAR VOLUME 82.8 FL (78-98); MEAN PLATELET VOLUME 8.2 FL (7.4-10.4); MONOCYTES # (AUTO) 0.2 X10'3 (0-0.9); MONOCYTES % (AUTO) 3.6 % (2-12); NEUTROPHILS # (AUTO) 4.7 X10'3 (1.8-7.7); NEUTROPHILS % (AUTO) 71.5 % (42-75); PLATELET COUNT 287 X10'3 (140-440); RED BLOOD COUNT 4.87 X10'6 (4.20-5.60); WHITE BLOOD COUNT 6.6 X10'3 (4.5-11.0)
[2023-07-14 16:32] LABS: ALBUMIN 4.1 G/DL (3.4-5.0); ANION GAP 8 (8-16); BLOOD UREA NITROGEN 15 MG/DL (7-18); BUN/CREATININE RATIO 17.9 (10.0-20.0); CALCIUM 8.6 MG/DL (8.5-10.1); CHLORIDE 105 MMOL/L (99-107); CREATININE 0.84 MG/DL (0.40-0.90); ETHANOL < 10 MG/DL (<10); GLUCOSE 123 MG/DL (70-104); POTASSIUM 3.4 MMOL/L (3.5-5.1); SODIUM 142 MMOL/L (135-145); THYROID STIMULATING HORMONE 0.91 ulU/ml (0.34-4.50); TOTAL CARBON DIOXIDE 29.1 MMOL/L (24-32); eCRCL 74 ML/MIN; eGFR 72 ML/MIN
[2023-07-14 17:02] LABS: BILIRUBIN,URINE NEGATIVE (Neg); CLARITY,URINE CLEAR (Clear); COLOR,URINE YELLOW (Yellow); GLUCOSE, URINE NEGATIVE (Neg); KETONES,URINE NEGATIVE (Neg); LEUKOCYTE ESTERASE ,URINE NEGATIVE (Neg); NITRITES, URINE NEGATIVE (Neg); OCCULT BLOOD,URINE TRACE-INTACT (Neg); PROTEIN,URINE NEGATIVE (Neg); UROBILINOGEN,URINE 0.2 E.U/dL (0.2-1.0)
[2023-07-14 17:04] LABS: URINE HCG NEGATIVE (NEG)
[2023-07-14 17:06] LABS: UA COLLECTION TYPE CLN CATCH MIDSTREAM
[2023-07-14 17:07] LABS: BACTERIA,URINE NONE SEEN /HPF (Neg); MUCUS STRANDS NONE SEEN /LPF (Neg); RBC,URINE 0-2 /HPF (0-2); SQUAMOUS EPITHELIAL CELL,UR MODERATE /LPF (FEW); WBC,URINE NONE SEEN /HPF (0-4)
[2023-07-14 17:10] LABS: URINE AMPHETAMINE SCREEN NEGATIVE (Neg); URINE BARBITUATE SCREEN NEGATIVE (Neg); URINE BENZODIAZEPINES SCREEN POSITIVE (Neg); URINE CANNABINOID SCREEN NEGATIVE (Neg); URINE COCAINE SCREEN NEGATIVE (Neg); URINE METHADONE SCREEN NEGATIVE (Neg); URINE OPIATE SCREEN NEGATIVE (Neg); URINE PHENCYCLIDINE SCREEN NEGATIVE (Neg)
[2023-07-14] MEDS: nicotine 21mg patch - 24 hr TD SCH (19:07)
[2023-07-15 13:38] VITALS: BP 158/102; PULSE 74; RESP 18; TEMP 98.1; O2SAT 98
== END 2023-07-15 15:01 | disposition home or self-care (01) ==
LOC: ER 15:31
DX: F29 Unspecified psychosis not due to a substance or known physiological condition (principal); Z20.822 Contact with and (suspected) exposure to COVID-19; I10 Essential (primary) hypertension; K21.9 Gastro-esophageal reflux disease without esophagitis; F15.90 Other stimulant use, unspecified, uncomplicated; Z79.899 Other long term (current) drug therapy
CPT/HCPCS: 36415; 80048; 80305; 80320; 81001; 81025; 84443; 85025; 87811; 99284

== ENCOUNTER 2023-07-25 10:43 | Inpatient (IN) | payer MEDICARE, MEDICAID ==
[~2023-07-25] VITALS: Ht 165.1 cm; Wt 87.4 kg
[2023-07-25 11:30] LABS: BASOPHILS % (AUTO) 0.3 % (0-1); EOSINOPHILS # (AUTO) 0.1 X10'3 (0-0.9); EOSINOPHILS % (AUTO) 1.7 % (0-6); HEMATOCRIT 38.8 % (35.0-45.0); HEMOGLOBIN 12.9 g/dl (12.0-16.0); LYMPHOCYTES # (AUTO) 1.9 X10'3 (1.1-4.8); LYMPHOCYTES % (AUTO) 31.7 % (21-51); MEAN CORPUSCULAR HEMOGLOBIN 27.5 PG (27.0-31.0); MEAN CORPUSCULAR HGB CONC 33.4 g/dL (33.0-36.5); MEAN CORPUSCULAR VOLUME 82.5 FL (78-98); MEAN PLATELET VOLUME 8.4 FL (7.4-10.4); MONOCYTES # (AUTO) 0.2 X10'3 (0-0.9); MONOCYTES % (AUTO) 3.7 % (2-12); NEUTROPHILS # (AUTO) 3.8 X10'3 (1.8-7.7); NEUTROPHILS % (AUTO) 62.6 % (42-75); PLATELET COUNT 227 X10'3 (140-440); RED CELL DISTRIBUTION WIDTH 12.7 % (11.5-14.5)
[2023-07-25] MEDS ORDERED: LAMO150T6 PO (11:46)
[2023-07-25] MEDS ORDERED: BUPR1FIL20 SL (11:46)
[2023-07-25] MEDS ORDERED: LURA120T2 PO (11:46)
[2023-07-25] MEDS ORDERED: DOCU-22 PO (11:46)
[2023-07-25] MEDS ORDERED: HYDR12.55 PO (11:46)
[2023-07-25] MEDS ORDERED: SERT-433 PO (11:46)
[2023-07-25 11:57] LABS: BILIRUBIN,URINE NEGATIVE (Neg); CLARITY,URINE SLIGHTLY CLOUDY (Clear); COLOR,URINE YELLOW (Yellow); GLUCOSE, URINE NEGATIVE (Neg); KETONES,URINE NEGATIVE (Neg); LEUKOCYTE ESTERASE ,URINE NEGATIVE (Neg); NITRITES, URINE NEGATIVE (Neg); OCCULT BLOOD,URINE NEGATIVE (Neg); PROTEIN,URINE NEGATIVE (Neg); UROBILINOGEN,URINE 0.2 E.U/dL (0.2-1.0)
[2023-07-25 12:00] LABS: URINE HCG NEGATIVE (NEG)
[2023-07-25 12:03] LABS: ALBUMIN 3.9 G/DL (3.4-5.0); ANION GAP 9 (8-16); BLOOD UREA NITROGEN 13 MG/DL (7-18); BUN/CREATININE RATIO 11.8 (10.0-20.0); CALCIUM 8.4 MG/DL (8.5-10.1); CHLORIDE 99 MMOL/L (99-107); ETHANOL < 10 MG/DL (<10); GLUCOSE 104 MG/DL (70-104); POTASSIUM 3.7 MMOL/L (3.5-5.1); SODIUM 136 MMOL/L (135-145); TOTAL CARBON DIOXIDE 28.3 MMOL/L (24-32); eCRCL 56 ML/MIN; eGFR 53 ML/MIN
[2023-07-25 12:11] LABS: UA COLLECTION TYPE CLN CATCH MIDSTREAM
[2023-07-25 12:12] LABS: BACTERIA,URINE FEW /HPF (Neg); RBC,URINE NONE SEEN /HPF (0-2); SQUAMOUS EPITHELIAL CELL,UR MANY /LPF (FEW)
[2023-07-25] MEDS ORDERED: NICO-503 MM (12:15)
[2023-07-25] MEDS ORDERED: DIAZ2TAB3 PO (12:15)
[2023-07-25] MEDS ORDERED: ONDA4TAB12 PO (12:15)
[2023-07-25] MEDS ORDERED: NICO-687 TOP (12:15)
[2023-07-25] MEDS ORDERED: GABA-530 PO (12:15)
[2023-07-25] MEDS ORDERED: TRAZ-251 PO (12:15)
[2023-07-25] MEDS ORDERED: HYDR-3686 PO (12:15)
[2023-07-25] MEDS: hydrOXYzine 25 MG tablet PO ONE (12:20)
[2023-07-25 12:42] LABS: THYROID STIMULATING HORMONE 2.56 ulU/ml (0.34-4.50)
[2023-07-25 12:42] LABS: URINE AMPHETAMINE SCREEN NEGATIVE (Neg); URINE BARBITUATE SCREEN NEGATIVE (Neg); URINE BENZODIAZEPINES SCREEN POSITIVE (Neg); URINE CANNABINOID SCREEN NEGATIVE (Neg); URINE COCAINE SCREEN NEGATIVE (Neg); URINE METHADONE SCREEN NEGATIVE (Neg); URINE OPIATE SCREEN NEGATIVE (Neg); URINE PHENCYCLIDINE SCREEN NEGATIVE (Neg)
[2023-07-25] MEDS: OLANZapine 2.5MG tablet PO ONE (12:42)
[2023-07-25] MEDS ORDERED: NICOTINE POLACRILEX 4 MG LOZENGE BC PRN (15:15)
[2023-07-25] MEDS: gabapentin 100mg capsule PO SCH (16:54)
[2023-07-25] MEDS: hydrOXYzine 25 MG tablet PO SCH (16:54)
[2023-07-25] MEDS: nicotine 21mg patch - 24 hr TD ONE (16:56)
[2023-07-25 19:42] VITALS: BP 121/76; PULSE 67; RESP 16; TEMP 98; O2SAT 97
[2023-07-25] MEDS ORDERED: loperamide 2mg capsule PO PRN (19:50)
[2023-07-25] MEDS ORDERED: NICOTINE POLACRILEX 2 MG LOZENGE BC PRN (19:50)
[2023-07-25] MEDS: traZODone 50mg tablet PO SCH (21:38)
[2023-07-25] MEDS: docusate sod 100mg capsule PO SCH (21:38)
[2023-07-25] MEDS: buprenorphine/naloxone 8MG-2MG SUBlingual film SL SCH (21:39)
[2023-07-26 07:46] VITALS: BP 118/86; PULSE 67; RESP 16; TEMP 98.1; O2SAT 67; O2SAT 96
[2023-07-26] MEDS: nicotine 21mg patch - 24 hr TD SCH ×2 (08:00→08:06)
[2023-07-26] MEDS: sertraline 50mg tablet PO SCH (08:04)
[2023-07-26] MEDS: lurasidone 60mg tablet PO SCH (08:04)
[2023-07-26] MEDS: lamoTRIgine 25mg tablet PO SCH (08:05)
[2023-07-26] MEDS: HYDROchlorothiazide 12.5mg capsule PO SCH (08:05)
[2023-07-26 09:12] LABS: CHOL/HDL RATIO 5.6 (0.00-4.99); CHOLESTEROL 240 MG/DL (0-200); HDL CHOLESTEROL 43 MG/DL (35-60); LDL CHOLESTEROL 149 MG/DL (50-100); TRIGLYCERIDES 166 MG/DL (20-135)
[2023-07-26 10:51] LABS: HEMOGLOBIN A1C 5.2 % (4.5-6.2)
[2023-07-26] MEDS: magnesium hydroxide 30ml (MOM) UD suspension PO PRN (12:20)
[2023-07-26 19:00] VITALS: RESP 14; O2SAT 98
[2023-07-26 20:00] VITALS: BP 119/78; PULSE 73; RESP 14; TEMP 98.7; O2SAT 98
[2023-07-26] MEDS: cloNIDine 0.1 mg tablet PO SCH (20:46)
[2023-07-27 07:00] VITALS: RESP 12; O2SAT 96
[2023-07-27 08:00] VITALS: BP 135/84; PULSE 76; RESP 12; TEMP 98.5; O2SAT 96
[2023-07-27] MEDS: lurasidone 60mg tablet PO SCH (08:37)
[2023-07-27] MEDS: lurasidone 20mg tablet PO SCH (08:37)
[2023-07-27] MEDS: atorvastatin 20mg tablet PO SCH (08:39)
[2023-07-27] MEDS: lamoTRIgine 25mg tablet PO SCH (08:39)
[2023-07-27 20:00] VITALS: BP 107/82; PULSE 80; RESP 16; TEMP 98.7; O2SAT 97
[2023-07-27] MEDS: traZODone 50mg tablet PO SCH (21:00)
[2023-07-28 07:00] VITALS: RESP 15; O2SAT 94
[2023-07-28 08:00] VITALS: BP 113/65; PULSE 66; RESP 15; TEMP 97.7; O2SAT 94
[2023-07-28 19:00] VITALS: RESP 16; O2SAT 98
[2023-07-28 19:46] VITALS: BP 110/57; PULSE 57; RESP 16; TEMP 98.1; O2SAT 98
[2023-07-29 07:00] VITALS: RESP 16; O2SAT 95
[2023-07-29 08:00] VITALS: BP 114/71; PULSE 62; RESP 16; TEMP 97.9; O2SAT 95
[2023-07-29] MEDS: LORazepam 1 MG tablet PO ONE (08:48)
[2023-07-29 19:00] VITALS: RESP 12; O2SAT 99
[2023-07-29 20:00] VITALS: BP 98/38; PULSE 61; RESP 12; TEMP 97.6; O2SAT 99
[2023-07-29 20:42] VITALS: BP 112/86; PULSE 68
[2023-07-30 07:00] VITALS: RESP 16; O2SAT 95
[2023-07-30] MEDS: duloxetine 30mg CAPSULE.DR PO SCH (07:45)
[2023-07-30] MEDS: sertraline 50mg tablet PO SCH (07:47)
[2023-07-30 08:00] VITALS: BP 103/55; PULSE 63; RESP 16; TEMP 97.7; O2SAT 95
[2023-07-30] MEDS: mag hydrox/Alum hydrox/simeth 30ml oral suspension PO PRN (09:39)
[2023-07-30 19:23] VITALS: BP 127/80; PULSE 73; RESP 16; TEMP 98.7; O2SAT 98
[2023-07-30] MEDS: haloperidol 5mg tablet PO ONE (20:47)
[2023-07-30] MEDS: LORazepam 1 MG tablet PO PRN (20:48)
[2023-07-31 07:00] VITALS: RESP 14; O2SAT 96
[2023-07-31 08:00] VITALS: BP 113/73; PULSE 69; RESP 14; TEMP 98.3; O2SAT 96
[2023-07-31] MEDS ORDERED: NICOTINE POLACRILEX 2 MG LOZENGE BC PRN (10:49)
[2023-07-31 19:00] VITALS: RESP 14; O2SAT 97
[2023-07-31 19:23] VITALS: BP 105/68; PULSE 63; RESP 14; TEMP 97.4; O2SAT 97
[2023-07-31] MEDS: gabapentin 100mg capsule PO SCH (20:36)
[2023-07-31] MEDS: hydrOXYzine 25 MG tablet PO SCH (20:37)
[2023-08-01 07:00] VITALS: BP 124/84; PULSE 68; RESP 12; TEMP 97.6; O2SAT 97
[2023-08-01 12:45] VITALS: BP 99/54; PULSE 62
[2023-08-01 19:00] VITALS: RESP 14; O2SAT 97
[2023-08-01 19:19] VITALS: BP 143/89; PULSE 67; RESP 14; TEMP 98.3; O2SAT 97
[2023-08-02 07:00] VITALS: BP 116/74; PULSE 60; RESP 16; TEMP 97.9; O2SAT 96
[2023-08-02] MEDS: haloperidol 1mg tablet PO SCH (07:35)
[2023-08-02] MEDS: lurasidone 60mg tablet PO SCH (07:36)
[2023-08-02 12:42] VITALS: BP 93/55; PULSE 59
[2023-08-02] MEDS ORDERED: LORazepam 1 MG tablet PO PRN (18:10)
[2023-08-02 19:00] VITALS: RESP 18; O2SAT 96
[2023-08-02 20:00] VITALS: BP 113/72; PULSE 62; RESP 18; TEMP 98.7; O2SAT 96
[2023-08-02] MEDS: LORazepam 0.5 MG tablet PO PRN (20:50)
[2023-08-03 07:00] VITALS: RESP 14; O2SAT 97
[2023-08-03 07:30] VITALS: BP 106/65; PULSE 66; RESP 14; TEMP 97.9; O2SAT 97
[2023-08-03] MEDS: lurasidone 60mg tablet PO SCH (07:45)
[2023-08-03 13:00] VITALS: BP 100/61; PULSE 61
[2023-08-03] MEDS: magnesium citrate 296ml oral solution PO ONE (16:17)
[2023-08-03 19:00] VITALS: RESP 16; O2SAT 96
[2023-08-03] MEDS: haloperidol 5mg tablet PO ONE (19:52)
[2023-08-03 20:00] VITALS: BP 139/86; PULSE 62; RESP 16; TEMP 98.4; O2SAT 96
[2023-08-03] MEDS: polyethylene glycol 3350 17gm powd pack PO SCH (20:25)
[2023-08-04 07:00] VITALS: RESP 16; O2SAT 95
[2023-08-04 08:00] VITALS: BP 115/65; PULSE 60; RESP 16; TEMP 97; O2SAT 95
[2023-08-04] MEDS: duloxetine 30mg CAPSULE.DR PO SCH (08:51)
[2023-08-04] MEDS: sertraline 50mg tablet PO SCH (08:52)
[2023-08-04 19:00] VITALS: RESP 18; O2SAT 97
[2023-08-04 19:10] VITALS: BP 152/86; PULSE 62; RESP 18; TEMP 97.3; O2SAT 97
[2023-08-04] MEDS: haloperidol 5mg tablet PO SCH (20:21)
[2023-08-04] MEDS: polyethylene glycol 3350 17gm powd pack PO SCH (20:42)
[2023-08-05 07:00] VITALS: RESP 18; O2SAT 96
[2023-08-05 08:00] VITALS: BP 91/55; PULSE 70; RESP 16; TEMP 97.3; O2SAT 95
[2023-08-05 19:23] VITALS: BP 140/83; PULSE 59; RESP 18; TEMP 97.2; O2SAT 97
[2023-08-05] MEDS: magnesium citrate 296ml oral solution PO ONE (19:49)
[2023-08-06 07:00] VITALS: RESP 16; O2SAT 95
[2023-08-06 08:55] VITALS: BP 121/71; PULSE 60; RESP 16; TEMP 98.5; O2SAT 95
[2023-08-06] MEDS: gabapentin 300mg capsule PO SCH (12:36)
[2023-08-06 19:00] VITALS: RESP 19; O2SAT 95
[2023-08-06 19:13] VITALS: BP 109/61; PULSE 65; RESP 19; TEMP 96.8; O2SAT 95
[2023-08-07 07:00] VITALS: RESP 16; O2SAT 94
[2023-08-07 08:00] VITALS: BP 102/66; PULSE 63; RESP 16; TEMP 97.8; O2SAT 94
[2023-08-07] MEDS: haloperidol 1mg tablet PO PRN (12:45)
[2023-08-07 19:41] VITALS: RESP 16; O2SAT 96
[2023-08-07] MEDS: haloperidol 5mg tablet PO SCH (20:15)
[2023-08-07 20:26] VITALS: BP 144/82; PULSE 61; RESP 15; TEMP 97.7; O2SAT 96
[2023-08-08 07:00] VITALS: RESP 16; O2SAT 95
[2023-08-08 08:00] VITALS: BP 109/76; PULSE 74; RESP 16; TEMP 97.7; O2SAT 93
[2023-08-08] MEDS: lamoTRIgine 100mg tablet PO SCH (08:08)
[2023-08-08] MEDS ORDERED: NICO-503 MM (12:38)
[2023-08-08] MEDS ORDERED: BUPR1FIL20 SL ×2 (12:38→12:41)
[2023-08-08] MEDS ORDERED: NICO-687 TOP (12:38)
[2023-08-08] MEDS ORDERED: CLON0.1T2 PO (12:38)
[2023-08-08] MEDS ORDERED: ATOR20TA66 PO (12:38)
[2023-08-08] MEDS ORDERED: HALO5TAB PO (12:38)
[2023-08-08] MEDS ORDERED: gabapentin capsule PO (12:38)
[2023-08-08] MEDS ORDERED: DULO60CA65 PO (12:38)
[2023-08-08] MEDS ORDERED: LAMO150T6 PO (12:38)
[2023-08-08] MEDS ORDERED: HYDR12.55 PO (12:38)
[2023-08-08] MEDS ORDERED: HYDR-3686 PO (12:38)
[2023-08-08] MEDS ORDERED: TRAZ-251 PO (12:38)
== END 2023-08-08 15:19 | disposition home or self-care (01) | DRG 885 ==
LOC: ER 10:43 → ADULT MH 15:58
PROVIDERS: ADMIT Psychiatry & Neurology Psychiatry; ATTEND Psychiatry & Neurology Psychiatry
PROC: GZHZZZZ Group Psychotherapy (ICD-10-PCS; principal; 2023-07-28)
PROC: GZ51ZZZ Individual Psychotherapy, Behavioral (ICD-10-PCS; 2023-07-28)
PROC: GZ56ZZZ Individual Psychotherapy, Supportive (ICD-10-PCS; 2023-07-29)
DX: F29 Unspecified psychosis not due to a substance or known physiological condition (principal); Z59.00 Homelessness unspecified; F32.A Depression, unspecified; F43.10 Post-traumatic stress disorder, unspecified; G47.00 Insomnia, unspecified; F41.9 Anxiety disorder, unspecified; K21.9 Gastro-esophageal reflux disease without esophagitis; Z20.822 Contact with and (suspected) exposure to COVID-19; I10 Essential (primary) hypertension; G89.29 Other chronic pain; F10.10 Alcohol abuse, uncomplicated; F11.10 Opioid abuse, uncomplicated; F15.10 Other stimulant abuse, uncomplicated; Z79.899 Other long term (current) drug therapy; Z87.11 Personal history of peptic ulcer disease
CPT/HCPCS: 36415; 74018; 80048; 80061; 80305; 80320; 81001; 81025; 83036; 84443; 85025; 87081; 87811; 99285; Q0177

== ENCOUNTER 2023-10-17 09:20 | Emergency (ER) | payer MEDICARE, MEDICAID ==
[~2023-10-17] VITALS: Ht 165.1 cm; Wt 80.7 kg
[~2023-10-17 09:20] MED LIST changes: -ARIP2TAB20 PO; +ATOR40TA PO; -BUPR-564 PO; -BUPR-94 PO; -BUPR1FIL5 SL; -BUPR1TAB44 SL; +CARI1.5C PO; +CLON0.1T2 PO; -CLON1TAB95 PO; -DIAZ2TAB3 PO; +DOCU-22 PO; -GABA-530 PO; +GABA300C PO; +HYDR-3686 PO; +HYDR12.55 PO; -HYDR50TA65 PO; +LAMO150T6 PO; -LURA20TA8 PO; -METO-395 PO; -METO-539 PO; +NICO-503 PO; -NICO-668 BC; -NICO-687 TD; +NICO-687 TOP; +PROP10TA10 PO; -SERT-434 PO; -SERT25TA PO; -TERB250T89 PO; -TRAZ-251 PO
[2023-10-17 09:22] VITALS: BP 158/104; PULSE 87; RESP 16; TEMP 98.4; O2SAT 97
== END 2023-10-17 10:14 | disposition left against medical advice (07) ==
LOC: ER 09:22
DX: F41.9 Anxiety disorder, unspecified (principal); Z53.21 Procedure and treatment not carried out due to patient leaving prior to being seen by health care provider